=== PATIENT | male | born 1980 | race American Indian/Alaskan Native ===

== ENCOUNTER 2019-07-28 21:15 | Emergency (ER) | payer SELFPAY ==
[2019-07-28 21:22] VITALS: BP 151/90
--- NOTE | 2019-07-28 21:42 | Emergency Department Report ---
Blank Doc - Documentation Documentation: 38-year-old male that presents with abdominal pain, n/v, and unable to control glucose. This initial assessment/diagnostic orders/clinical plan/treatment(s) is/are subject to change based on patient's health status, clinical progression and re- assessment by fellow clinical providers in the ED. Further treatment and workup at subsequent clinical providers discretion. Patient/guardians urged not to elope from the ED as their condition may be serious if not clinically assessed and managed. Initial orders include: 1- Patient sent to [facility] for further evaluation and treatment 2- labs
[2019-07-28 22:14] LABS: Basophils # (Auto) 0.1 K/mm3 (0.0-0.1); Basophils % (Auto) 0.7 % (0.0-1.8); Eosinophils % (Auto) 0.1 % (0.0-4.3); Hematocrit 50.7 % (35.5-45.6); Hemoglobin 17.6 gm/dl (11.8-15.2); Lymphocytes # (Auto) 1.4 K/mm3 (1.2-5.4); Lymphocytes % (Auto) 13.6 % (13.4-35.0); Mean Corpuscular HGB Conc 35 % (32-34); Mean Corpuscular Volume 88 fl (84-94); Monocytes # (Auto) 0.8 K/mm3 (0.0-0.8); Monocytes % (Auto) 7.6 % (0.0-7.3); Platelet Count 351 K/mm3 (140-440); Red Cell Distribution Width 13.3 % (13.2-15.2)
[2019-07-28 22:33] LABS: Alanine Aminotransferase 22 units/L (7-56); BUN/Creatinine Ratio 14; Blood Urea Nitrogen 14 mg/dL (9-20); Hemolysis Index 3
[2019-07-28 23:28] LABS: Bilirubin,Urine NEG (Negative); Blood,Urine NEG (Negative); Color,Urine Yellow (Yellow); Mucus,Urine FEW /HPF; Urobilinogen,Urine < 2.0 mg/dL (<2.0)
[2019-07-29] MEDS ORDERED: ONDANSETRON 4 MG/2 ML INJ IV ONE (00:15)
[2019-07-29] MEDS ORDERED: SODIUM CHLORIDE 0.9% 1000 ML 1,000 ML IV ONE (00:15)
--- NOTE | 2019-07-29 00:15 | Emergency Department Report ---
ED Abdominal Pain HPI - General Chief Complaint: Nausea/Vomiting/Diarrhea Stated Complaint: HIGH BLOOD SUGAR Time Seen by Provider: 07/28/19 21:40 Source: patient Mode of arrival: Ambulatory Limitations: No Limitations - History of Present Illness Initial Comments: Mr. knigth is a very pleasant 38-year-old male with history of [id number] diabetes who presents with stomach upset and vomiting for the past 2 days. After eating but today he felt that he ate a mushroom. He began to have sweats and chills. He was diagnosed with diabetes mellitus in 2009. Without insurance he has been unable to obtain metformin prescription. He denies any abdominal pain now. He has been able to tolerate water. He had mild stomach upset. MD Complaint: abdominal pain -: Gradual Location: diffuse Radiation: none Severity: mild Quality: aching Consistency: now resolved Improves With: nothing Worsens With: nothing Context: possible food poisoning Associated Symptoms: nausea, vomiting - Related Data Previous Rx's Medication Instructions Recorded Last Taken Type Promethazine [Phenergan] 25 mg PO Q6HR PRN #10 tab 07/29/19 Unknown Rx metFORMIN [Glucophage] 500 mg PO BID 30 Days #60 tablet 07/29/19 Unknown Rx Allergies Allergy/AdvReac Type Severity Reaction Status Date / Time No Known Allergies Allergy Verified 07/28/19 21:18 ED Review of Systems ROS: Stated complaint: HIGH BLOOD SUGAR Other details as noted in HPI Comment: All other systems reviewed and negative Constitutional: chills, fever, malaise Gastrointestinal: abdominal pain, nausea, vomiting. denies: diarrhea ED Past Medical Hx - Past Medical History Previous Medical History?: Yes Hx Diabetes: Yes - Surgical History Past Surgical History?: Yes - Social History Smoking Status: Never Smoker Substance Use Type: None - Medications Home Medications: Home Medications Medication Instructions Recorded Confirmed Last Taken Type Promethazine [Phenergan] 25 mg PO Q6HR PRN #10 tab 07/29/19 Unknown Rx metFORMIN [Glucophage] 500 mg PO BID 30 Days #60 tablet 07/29/19 Unknown Rx ED Physical Exam - General Limitations: No Limitations General appearance: alert, in no apparent distress - Head Head exam: Present: atraumatic, normocephalic - Eye Eye exam: Present: normal appearance - ENT ENT exam: Present: mucous membranes moist - Neck Neck exam: Present: normal inspection, full ROM - Respiratory Respiratory exam: Present: normal lung sounds bilaterally. Absent: respiratory distress, wheezes, rales, rhonchi - Cardiovascular Cardiovascular Exam: Present: regular rate, normal rhythm, normal heart sounds. Absent: systolic murmur, diastolic murmur, rubs, gallop - GI/Abdominal GI/Abdominal exam: Present: soft, normal bowel sounds. Absent: distended, tenderness, guarding, rebound - Rectal Rectal exam: Present: deferred - Extremities Exam Extremities exam: Present: normal inspection - Back Exam Back exam: Present: normal inspection - Neurological Exam Neurological exam: Present: alert, oriented X3 - Psychiatric Psychiatric exam: Present: normal affect, normal mood - Skin Skin exam: Present: warm, dry, intact, normal color. Absent: rash ED Course Vital Signs 07/28/19 07/28/19 21:21 21:40 Temperature 98.4 F 98.4 F Pulse Rate 72 75 Respiratory 18 18 Rate Blood Pressure 151/90 151/90 O2 Sat by Pulse 99 99 Oximetry ED Medical Decision Making - Lab Data Result diagrams: 07/28/19 21:51 07/28/19 21:51 Laboratory Results - last 24 hr 07/28/19 07/28/19 07/28/19 21:33 21:51 21:51 WBC 10.4 RBC 5.80 H Hgb 17.6 H Hct 50.7 H MCV 88 MCH 30 MCHC 35 H RDW 13.3 Plt Count 351 Lymph % (Auto) 13.6 [place] % (Auto) 7.6 H Eos % (Auto) 0.1 Baso % (Auto) 0.7 Lymph # 1.4 [place] # 0.8 Eos # 0.0 Baso # 0.1 Seg Neutrophils % 78.0 H Seg Neutrophils # 8.1 H VBG pH 7.435 H Sodium Potassium Chloride Carbon Dioxide Anion Gap BUN Creatinine Estimated GFR BUN/Creatinine Ratio Glucose POC Glucose 195 H Calcium Total Bilirubin AST ALT Alkaline Phosphatase Total Protein Albumin Albumin/Globulin Ratio Lipase Urine Color Urine Turbidity Urine pH Ur Specific [place] Urine Protein Urine Glucose (UA) Urine Ketones Urine Blood Urine Nitrite Urine Bilirubin Urine Urobilinogen Ur Leukocyte Esterase Urine WBC (Auto) Urine RBC (Auto) Urine Mucus 07/28/19 07/28/19 21:51 23:02 WBC RBC Hgb Hct MCV MCH MCHC RDW Plt Count Lymph % (Auto) [place] % (Auto) Eos % (Auto) Baso % (Auto) Lymph # [place] # Eos # Baso # Seg Neutrophils % Seg Neutrophils # VBG pH Sodium 133 L Potassium 3.5 L Chloride 90.0 L Carbon Dioxide 26 Anion Gap 21 BUN 14 Creatinine 1.0 Estimated GFR > 60 BUN/Creatinine Ratio 14 Glucose 220 H POC Glucose Calcium 10.0 Total Bilirubin 0.70 AST 23 ALT 22 Alkaline Phosphatase 91 Total Protein 8.6 H Albumin 5.0 Albumin/Globulin Ratio 1.4 Lipase 17 Urine Color Yellow Urine Turbidity Clear Urine pH 6.0 Ur Specific [place] 1.021 Urine Protein 30 mg/dl Urine Glucose (UA) 50 Urine Ketones 20 Urine Blood Neg Urine Nitrite Neg Urine Bilirubin Neg Urine Urobilinogen < 2.0 Ur Leukocyte Esterase Neg Urine WBC (Auto) 1.0 Urine RBC (Auto) 2.0 Urine Mucus Few - Medical Decision Making Mr. Knight has mild ketosis evident with anion gap and ketonuria. Hemocontration seen on elevated H&H. No indication of peritonitis on exam. Normal WBC. I do not suspect acute intra -abdominal inflammatory process. Prescribed 90 day prescription of metformin. Prescribed promethazine. Differential diagnosis includes food poisoning, gastroparesis, cyclical vomiting syndrome, influenza, peptic ulcer disease, gastritis I do not suspect acute inflammatory process such as appendicitis cholecystitis pancreatitis Critical care attestation.: If time is entered above; I have spent that time in minutes in the direct care of this critically ill patient, excluding procedure time. ED Disposition Clinical Impression: Vomiting, Abdominal pain, Diabetes mellitus Disposition: DC-01 TO HOME OR SELFCARE Is pt being admited?: No Does the pt Need Aspirin: No Condition: Stable Instructions: Abdominal Pain (ED) Prescriptions: metFORMIN [Glucophage] 500 mg PO BID 30 Days #60 tablet Promethazine [Phenergan] 25 mg PO Q6HR PRN #10 tab PRN Reason: Nausea Referrals: ANGELITO DUMONT MD [Staff Physician] - 3-5 Days Forms: Work/School Release Form(ED)
== END 2019-07-29 01:45 | disposition home or self-care (01) ==
LOC: ED 21:15
DX: E11.9 Type 2 diabetes mellitus without complications (principal); R10.84 Generalized abdominal pain; R11.2 Nausea with vomiting, unspecified
CPT/HCPCS: 36415; 80053; 81001; 82805; 82962; 83690; 85025; 96361; 96374; 99283; J2405; J7030